=== PATIENT | female | born 1965 | race Caucasian/White ===

== ENCOUNTER 2020-05-30 12:07 | Inpatient (IN) ==
[2020-05-30 13:19] LABS: ABS Lymphocytes 0.9 10^3/ul (1.0-4.8); ABS Monocytes 0.8 10^3/ul (0-0.8); ABS Neutrophils 4.6 10^3/ul (1.5-7.7); Eosinophil % 0.5 %; Hematocrit 32 % (35-47); Hemoglobin 11.3 g/dL (12.0-16.0); Lymphocyte % 14.5 %; Mean Corpuscular HGB Conc 35 g/dL (31-36); Mean Corpuscular Hemoglobin 37 pg (27-31); Mean Corpuscular Volume 107 fL (80-97); Mean Platelet Volume 7.8 fL (7.4-10.4); Platelet Count 205 10^3/uL (150-450); Red Blood Count 3.02 10^6 /uL (3.70-4.87); Red Cell Distribution Width 13 % (10-15); White Blood Count 6.4 10^3/uL (3.5-10.8)
[2020-05-30 13:29] LABS: Activated Partial Thrombo Time 22.8 seconds (26.0-38.0); INR 0.99 (0.82-1.09)
[2020-05-30 13:37] LABS: Albumin 4.2 g/dL (3.2-5.2); Albumin/Globulin Ratio 1.4 (1-3); BUN/Creatinine Ratio 40.5 (8-20); Calcium 9.2 mg/dL (8.6-10.3); EGFR African American 91.1 (>60); EGFR Non-African American 75.3 (>60); Globulin 3.1 g/dL (2-4); Potassium 3.8 mmol/L (3.5-5.0); Total Bilirubin 0.8 mg/dL (0.2-1.0); Total Protein 7.3 g/dL (6.4-8.9)
[2020-05-30] MEDS ORDERED: Pantoprazole 80 mg in NS BAG 80 MG/250 ML BAG IV ONE (14:18)
[2020-05-30] MEDS ORDERED: Pantoprazole VIAL 40 MG VIAL IV ONE (14:18)
[2020-05-30] MEDS ORDERED: NS 0.9% 500 ml BAG 500 ML IV ONE (15:05)
[2020-05-30] MEDS ORDERED: Lactated Ringers 1000 ml BAG 1,000 ML IV SCH (15:51)
[2020-05-30] MEDS ORDERED: Morphine 2 MG/ML SYRINGE IV PRN ×2 (16:07→19:35)
[2020-05-30] MEDS ORDERED: Al Hydrox/Mg Hydrox/Simet LIQ 30 ML UDC PO PRN (16:07)
[2020-05-30] MEDS: Lactated Ringers 1000 ml BAG 1,000 ML IV SCH ×2 (17:41→20:27)
[2020-05-30] MEDS ORDERED: Estradiol PATCH 0.05 MG/DAY PATCH TRANSDERM SCH (18:30)
[2020-05-30 22:25] LABS: Hematocrit 25 % (35-47); Hemoglobin 8.7 g/dL (12.0-16.0); Mean Corpuscular HGB Conc 35 g/dL (31-36); Mean Corpuscular Hemoglobin 38 pg (27-31); Mean Corpuscular Volume 107 fL (80-97); Mean Platelet Volume 7.4 fL (7.4-10.4); Platelet Count 156 10^3/uL (150-450); Red Blood Count 2.31 10^6 /uL (3.70-4.87); Red Cell Distribution Width 13 % (10-15); White Blood Count 4.4 10^3/uL (3.5-10.8)
[2020-05-30 23:45] LABS: % Iron Saturation 25 % (15-55); Iron 79 ug/dL (50-212); Total Iron Binding Capacity 311 mcg/dL (250-450); Transferrin 222 mg/dL (203-362); Unsaturated Iron Binding < 296 ug/dL
[2020-05-31 00:07] LABS: Ferritin 64.5 ng/mL (11-307)
[2020-05-31 00:11] LABS: Folate > 20.00 ng/mL (>3.99)
[2020-05-31 00:12] LABS: Vitamin B12 > 1450 pg/mL (180-914)
[2020-05-31] MEDS: Pantoprazole 80 mg in NS BAG 80 MG/250 ML BAG IV SCH ×2 (01:11→12:51)
[2020-05-31 06:19] LABS: Hematocrit 25 % (35-47); Hemoglobin 8.5 g/dL (12.0-16.0); Mean Corpuscular HGB Conc 35 g/dL (31-36); Mean Corpuscular Hemoglobin 37 pg (27-31); Mean Corpuscular Volume 108 fL (80-97); Mean Platelet Volume 7.7 fL (7.4-10.4); Platelet Count 140 10^3/uL (150-450); Red Blood Count 2.27 10^6 /uL (3.70-4.87); Red Cell Distribution Width 13 % (10-15); White Blood Count 3.2 10^3/uL (3.5-10.8)
[2020-05-31] MEDS ORDERED: Midazolam 10 mg/10 ml VIAL 1 mg/ml 10 ml VIAL (10 mg) ONE (10:30)
[2020-05-31] MEDS ORDERED: fentaNYL 100 mcg/2 ml 50 MCG/ML VIAL ONE (10:30)
[2020-05-31] MEDS: Multivitamins/Minerals TAB PO SCH (11:09)
[2020-05-31] MEDS ORDERED: Multivitamins/Minerals TAB PO ONE (13:05)
[2020-05-31 15:50] LABS: Hematocrit 24 % (35-47); Hemoglobin 8.3 g/dL (12.0-16.0); Mean Corpuscular HGB Conc 34 g/dL (31-36); Mean Corpuscular Hemoglobin 37 pg (27-31); Mean Corpuscular Volume 108 fL (80-97); Mean Platelet Volume 7.7 fL (7.4-10.4); Platelet Count 163 10^3/uL (150-450); Red Blood Count 2.23 10^6 /uL (3.70-4.87); Red Cell Distribution Width 13 % (10-15); White Blood Count 3.6 10^3/uL (3.5-10.8)
[2020-05-31] MEDS: Pantoprazole VIAL 40 MG VIAL IV SCH (20:03)
[2020-06-01 06:14] LABS: Mean Corpuscular Volume 108 fL (80-97)
[2020-06-01 06:15] LABS: Hematocrit 24 % (35-47); Hemoglobin 8.5 g/dL (12.0-16.0); Mean Corpuscular HGB Conc 35 g/dL (31-36); Mean Corpuscular Hemoglobin 38 pg (27-31); Mean Platelet Volume 7.3 fL (7.4-10.4); Platelet Count 156 10^3/uL (150-450); Red Blood Count 2.24 10^6 /uL (3.70-4.87); Red Cell Distribution Width 13 % (10-15); White Blood Count 3.3 10^3/uL (3.5-10.8)
[2020-06-01] MEDS: Pantoprazole VIAL 40 MG VIAL IV SCH (09:12)
[2020-06-01] MEDS: Multivitamins/Minerals TAB PO SCH (09:13)
[2020-06-01 15:52] VITALS: BP 97/61
[2020-06-06] MEDS ORDERED: Estradiol PATCH 0.05 MG/DAY PATCH TRANSDERM SCH (09:00)
== END 2020-06-01 17:30 | disposition home or self-care (01) | DRG 241 ==
LOC: ED 12:07 → MEDTELE 16:07
PROVIDERS: ADMIT Internal Medicine; ATTEND Hospitalist

== ENCOUNTER 2021-01-02 20:43 | Inpatient (IN) ==
[2021-01-02] MEDS ORDERED: NS 0.9% 1000 ml BAG 1,000 ML IV ONE (21:19)
[2021-01-02] MEDS ORDERED: Pantoprazole VIAL 40 MG VIAL IV ONE (21:19)
[2021-01-02 22:03] LABS: ABS Lymphocytes 0.7 10^3/ul (1.0-4.8); ABS Monocytes 0.6 10^3/ul (0-0.8); Eosinophil % 0.7 %; Hematocrit 27 % (35-47); Hemoglobin 8.8 g/dL (12.0-16.0); Lymphocyte % 15.6 %; Mean Corpuscular HGB Conc 33 g/dL (31-36); Mean Corpuscular Hemoglobin 31 pg (27-31); Mean Corpuscular Volume 94 fL (80-97); Nucleated Red Blood Cells % 0.1; Platelet Count 157 10^3/uL (150-450); Red Blood Count 2.84 10^6 /uL (3.70-4.87); Red Cell Distribution Width 18 % (10-15); White Blood Count 4.3 10^3/uL (3.5-10.8)
[2021-01-02 22:10] LABS: Activated Partial Thrombo Time 24.5 seconds (26.0-38.0); INR 1.06 (0.82-1.09)
[2021-01-02 22:16] LABS: ALT 48 U/L (7-52); AST 85 U/L (13-39); Albumin/Globulin Ratio 1.4 (1-3); Alkaline Phosphatase 62 U/L (34-104); Anion Gap 7 mmol/L (2-11); BUN/Creatinine Ratio 34.8 (8-20); Blood Urea Nitrogen 24 mg/dL (6-24); CO2 Carbon Dioxide 24 mmol/L (22-32); Calcium 8.6 mg/dL (8.6-10.3); Chloride 104 mmol/L (101-111); EGFR African American 106.5 (>60); Globulin 2.8 g/dL (2-4); Glucose 105 mg/dL (70-100); Potassium 3.4 mmol/L (3.5-5.0); Sodium 135 mmol/L (135-145); Total Protein 6.8 g/dL (6.4-8.9)
[2021-01-03] MEDS ORDERED: Iohexol 300 (CONTRAST) 10 ML SDV IV ONE (01:55)
[2021-01-03 02:27] LABS: Hematocrit 25 % (35-47); Hemoglobin 8.6 g/dL (12.0-16.0)
[2021-01-03] MEDS ORDERED: Ondansetron 4 mg VIAL 2 MG/ML 2 ml VIAL IV ONE (02:39)
[2021-01-03 06:05] LABS: Hematocrit 24 % (35-47); Hemoglobin 8.1 g/dL (12.0-16.0)
[2021-01-03] MEDS ORDERED: NS 0.9% 1000 ml BAG 1,000 ML IV SCH ×2 (08:45→09:16)
[2021-01-03] MEDS ORDERED: Al Hydrox/Mg Hydrox/Simet LIQ 30 ML UDC PO PRN (09:13)
[2021-01-03] MEDS: KCL 20 MEQ/100 ML IVPREMIX 20 MEQ/100 ML BAG IV SCH ×2 (09:34→12:21)
[2021-01-03 10:00] LABS: Iron 134 ug/dL (50-212)
[2021-01-03 10:16] LABS: Folate 18.75 ng/mL (>3.99)
[2021-01-03 10:17] LABS: Vitamin B12 > 1450 pg/mL (180-914)
[2021-01-03 10:26] LABS: Hematocrit 24 % (35-47); Hemoglobin 7.8 g/dL (12.0-16.0)
[2021-01-03] MEDS: Pantoprazole 80 mg in NS BAG 80 MG/250 ML BAG IV SCH ×2 (10:47→22:38)
[2021-01-03] MEDS ORDERED: fentaNYL 100 mcg/2 ml 50 MCG/ML VIAL ONE (16:01)
[2021-01-03] MEDS ORDERED: Midazolam 10 mg/10 ml VIAL 1 mg/ml 10 ml VIAL (10 mg) ONE (16:01)
[2021-01-03] MEDS ORDERED: EPINEPHrine SYR 0.1MG/ML 10 ml SYRINGE ONE ×2 (17:13→18:01)
[2021-01-03 18:26] LABS: Hematocrit 25 % (35-47); Hemoglobin 8.2 g/dL (12.0-16.0)
[2021-01-03] MEDS ORDERED: D5NS 0.9% 1000 ml BAG 1,000 ML IV SCH (20:00)
[2021-01-04 04:48] LABS: ABS Eosinophils 0.1 10^3/ul (0-0.6); ABS Lymphocytes 0.8 10^3/ul (1.0-4.8); ABS Monocytes 0.3 10^3/ul (0-0.8); ABS Neutrophils 1.3 10^3/ul (1.5-7.7); Eosinophil % 3.6 %; Hematocrit 24 % (35-47); Hemoglobin 7.7 g/dL (12.0-16.0); Lymphocyte % 32.8 %; Mean Corpuscular HGB Conc 33 g/dL (31-36); Mean Corpuscular Hemoglobin 31 pg (27-31); Mean Corpuscular Volume 96 fL (80-97); Mean Platelet Volume 7.8 fL (7.4-10.4); Nucleated Red Blood Cells % 0.1; Platelet Count 138 10^3/uL (150-450); Red Blood Count 2.46 10^6 /uL (3.70-4.87); Red Cell Distribution Width 18 % (10-15); White Blood Count 2.6 10^3/uL (3.5-10.8)
[2021-01-04 05:00] LABS: BUN/Creatinine Ratio 13.2 (8-20); Calcium 8.3 mg/dL (8.6-10.3); EGFR African American 95.3 (>60); EGFR Non-African American 78.7 (>60); Potassium 3.5 mmol/L (3.5-5.0)
[2021-01-04] MEDS ORDERED: D5NS 0.9% 1000 ml BAG 1,000 ML IV SCH (05:00)
[2021-01-04] MEDS: Pantoprazole 80 mg in NS BAG 80 MG/250 ML BAG IV SCH ×2 (08:37→20:16)
[2021-01-04 08:55] LABS: Hematocrit 23 % (35-47); Hemoglobin 7.7 g/dL (12.0-16.0)
[2021-01-04 18:41] LABS: Hematocrit 28 % (35-47); Hemoglobin 9.2 g/dL (12.0-16.0)
[2021-01-05 01:06] LABS: Hematocrit 27 % (35-47); Hemoglobin 9.1 g/dL (12.0-16.0)
[2021-01-05] MEDS: Pantoprazole 80 mg in NS BAG 80 MG/250 ML BAG IV SCH ×2 (04:15→17:21)
[2021-01-05 08:52] LABS: ABS Eosinophils 0.1 10^3/ul (0-0.6); ABS Lymphocytes 0.9 10^3/ul (1.0-4.8); ABS Monocytes 0.4 10^3/ul (0-0.8); ABS Neutrophils 1.7 10^3/ul (1.5-7.7); Eosinophil % 4.6 %; Hematocrit 27 % (35-47); Hemoglobin 9.2 g/dL (12.0-16.0); Lymphocyte % 28.2 %; Mean Corpuscular HGB Conc 34 g/dL (31-36); Mean Corpuscular Hemoglobin 32 pg (27-31); Mean Corpuscular Volume 94 fL (80-97); Mean Platelet Volume 8.1 fL (7.4-10.4); Platelet Count 161 10^3/uL (150-450); Red Blood Count 2.91 10^6 /uL (3.70-4.87); Red Cell Distribution Width 19 % (10-15); White Blood Count 3.3 10^3/uL (3.5-10.8)
[2021-01-05 09:00] LABS: Anion Gap 8 mmol/L (2-11); BUN/Creatinine Ratio 5.3 (8-20); Blood Urea Nitrogen 4 mg/dL (6-24); CO2 Carbon Dioxide 24 mmol/L (22-32); Calcium 8.8 mg/dL (8.6-10.3); Chloride 108 mmol/L (101-111); EGFR African American 96.7 (>60); EGFR Non-African American 79.9 (>60); Glucose 92 mg/dL (70-100); Potassium 3.3 mmol/L (3.5-5.0); Sodium 140 mmol/L (135-145)
[2021-01-05 09:58] LABS: Magnesium 1.9 mg/dL (1.9-2.7)
[2021-01-05 11:23] LABS: % Iron Saturation 15 % (15-55); Iron 54 ug/dL (50-212); Total Iron Binding Capacity 360 mcg/dL (250-450); Transferrin 257 mg/dL (203-362); Unsaturated Iron Binding < 345 ug/dL
[2021-01-05] MEDS ORDERED: Influenza VAC *QUAD* 2020-21* 0.5 ML SYRINGE IM ONE (20:00)
[2021-01-06] MEDS: Pantoprazole 80 mg in NS BAG 80 MG/250 ML BAG IV SCH ×2 (04:04→10:05)
[2021-01-06 08:23] LABS: ABS Eosinophils 0.1 10^3/ul (0-0.6); ABS Lymphocytes 0.9 10^3/ul (1.0-4.8); ABS Monocytes 0.6 10^3/ul (0-0.8); ABS Neutrophils 1.9 10^3/ul (1.5-7.7); Eosinophil % 3.5 %; Hematocrit 28 % (35-47); Hemoglobin 9.1 g/dL (12.0-16.0); Lymphocyte % 24.9 %; Mean Corpuscular HGB Conc 33 g/dL (31-36); Mean Corpuscular Hemoglobin 32 pg (27-31); Mean Corpuscular Volume 96 fL (80-97); Mean Platelet Volume 7.9 fL (7.4-10.4); Nucleated Red Blood Cells % 0.1; Platelet Count 184 10^3/uL (150-450); Red Blood Count 2.86 10^6 /uL (3.70-4.87); Red Cell Distribution Width 18 % (10-15); White Blood Count 3.4 10^3/uL (3.5-10.8)
[2021-01-06 08:38] LABS: BUN/Creatinine Ratio 5.3 (8-20); Calcium 8.7 mg/dL (8.6-10.3); EGFR African American 95.3 (>60); EGFR Non-African American 78.7 (>60); Potassium 3.6 mmol/L (3.5-5.0)
[2021-01-06 11:42] VITALS: BP 105/70
== END 2021-01-06 11:35 | disposition home or self-care (01) | DRG 241 ==
LOC: MEDTELE 20:43 → ED 20:43 → MEDTELE 01-03 10:29
PROVIDERS: ADMIT Internal Medicine; ATTEND Internal Medicine